=== PATIENT | female | born 1945 | race Caucasian/White ===

== ENCOUNTER 2017-11-13 09:00 | Day surgery (SDC) | payer MEDICARE, OTHER ==
[~2017-11-13] VITALS: Ht 162.6 cm; Wt 84.6 kg
[2017-11-13] MEDS ORDERED: COZAAR100 MG PO (09:25)
[2017-11-13] MEDS ORDERED: CARDURA 8MG TAB8 MG PO (09:25)
[2017-11-13] MEDS ORDERED: PAXIL 10MG10 MG PO (09:26)
[2017-11-13] MEDS ORDERED: COREG 25MG25 MG/TAB PO (09:26)
[2017-11-13] MEDS ORDERED: SINGULAIR 110 MG/TAB PO (09:27)
[2017-11-13] MEDS ORDERED: HCTZ 25MG TAB25 MG PO (09:27)
[2017-11-13] MEDS ORDERED: ALLEGRA 180MG180 MG PO (09:27)
[2017-11-13] MEDS ORDERED: LIPITOR 10MG10 MG PO (09:28)
[2017-11-13] MEDS ORDERED: VITAMIN D 400400 IU PO (09:29)
[2017-11-13 09:40] VITALS: BP 147/79; PULSE 72; TEMP 98.7
[2017-11-13 11:46] VITALS: BP 140/67; PULSE 72
[2017-11-13 12:01] VITALS: BP 131/72; PULSE 65
[2017-11-13 12:16] VITALS: BP 117/63; PULSE 71
== END 2017-11-13 12:35 | disposition home or self-care (01) ==
LOC: SDCO 09:00
DX: Z12.11 Encounter for screening for malignant neoplasm of colon (principal); K57.30 Diverticulosis of large intestine without perforation or abscess without bleeding; K64.0 First degree hemorrhoids; E78.00 Pure hypercholesterolemia, unspecified; M19.90 Unspecified osteoarthritis, unspecified site; I10 Essential (primary) hypertension; Z90.710 Acquired absence of both cervix and uterus; Z85.3 Personal history of malignant neoplasm of breast
CPT/HCPCS: OP; J2250; J3010; J7030

== ENCOUNTER → 2017-12-03 | Outpatient (CLI) | payer MEDICARE, OTHER ==
[~2017-12-03] MED LIST: ALLEGRA 180MG180 MG PO; CARDURA 8MG TAB8 MG PO; COREG 25MG25 MG/TAB PO; COZAAR100 MG PO; HCTZ 25MG TAB25 MG PO; LIPITOR 10MG10 MG PO; PAXIL 10MG10 MG PO; SINGULAIR 110 MG/TAB PO; VITAMIN D 400400 IU PO
== END ==
LOC: MC.RAD 13:15
DX: Z12.31 Encounter for screening mammogram for malignant neoplasm of breast (principal)

== ENCOUNTER → 2019-01-09 | Outpatient (CLI) | payer MEDICARE, OTHER | LOC: MC.RAD 12-05 10:45 | DX: Z12.31 Encounter for screening mammogram for malignant neoplasm of breast (principal); N64.89 Other specified disorders of breast ==

== ENCOUNTER → 2019-01-13 | Outpatient (CLI) | payer MEDICARE, OTHER | LOC: MC.RAD 13:51 | DX: D24.2 Benign neoplasm of left breast (principal); N60.12 Diffuse cystic mastopathy of left breast | CPT/HCPCS: G0279 ==

== ENCOUNTER → 2019-02-27 | Outpatient (CLI) | payer MEDICARE, OTHER | LOC: COL.PUL 07:40 | DX: J90 Pleural effusion, not elsewhere classified (principal); I51.7 Cardiomegaly; I34.0 Nonrheumatic mitral (valve) insufficiency; I31.3 Pericardial effusion (noninflammatory) ==

== ENCOUNTER → 2019-11-19 | Outpatient (CLI) | payer MEDICARE, OTHER | LOC: COL.VAS 11-18 13:15 | DX: I34.0 Nonrheumatic mitral (valve) insufficiency (principal); I27.20 Pulmonary hypertension, unspecified; I51.7 Cardiomegaly ==

== ENCOUNTER → 2020-02-10 | Outpatient (CLI) | payer MEDICARE, OTHER | LOC: MC.RAD 08:37 | DX: Z12.31 Encounter for screening mammogram for malignant neoplasm of breast (principal); Z78.0 Asymptomatic menopausal state ==

== ENCOUNTER → 2021-03-17 | Outpatient (CLI) | payer MEDICARE, OTHER | LOC: MC.RAD 08:10 | DX: Z12.31 Encounter for screening mammogram for malignant neoplasm of breast (principal); Z98.890 Other specified postprocedural states ==

== ENCOUNTER 2022-10-09 22:36 | Emergency (ER) | payer MEDICARE, OTHER ==
[~2022-10-09] VITALS: Ht 162.6 cm; Wt 90.9 kg
[2022-10-09 22:46] VITALS: TEMP 98.4
[2022-10-10 00:11] VITALS: BP 161/73; PULSE 62
== END 2022-10-10 00:11 | disposition home or self-care (01) ==
LOC: COL.ER 22:36
DX: S09.90XA Unspecified injury of head, initial encounter (principal); S01.01XA Laceration without foreign body of scalp, initial encounter; S89.92XA Unspecified injury of left lower leg, initial encounter; S49.91XA Unspecified injury of right shoulder and upper arm, initial encounter; Z23 Encounter for immunization; W01.198A Fall on same level from slipping, tripping and stumbling with subsequent striking against other object, initial encounter

== ENCOUNTER → 2023-06-06 | Outpatient (CLI) | payer MEDICARE | LOC: MC.RAD 09:44 | DX: Z12.31 Encounter for screening mammogram for malignant neoplasm of breast (principal) ==

== ENCOUNTER → 2024-02-12 | Outpatient (CLI) | payer MEDICARE | LOC: COL.VAS 12:31 | DX: G47.33 Obstructive sleep apnea (adult) (pediatric) (principal); I27.20 Pulmonary hypertension, unspecified; I51.7 Cardiomegaly; I34.0 Nonrheumatic mitral (valve) insufficiency ==